=== PATIENT | male | born 1960 | race Two or more races ===

== ENCOUNTER 2019-05-08 16:25 | Emergency (ER) | payer MEDICARE, MEDICAID ==
[~2019-05-08] VITALS: Ht 170.2 cm; Wt 81.6 kg
[2019-05-08 16:30] VITALS: BP 149/80
--- NOTE | 2019-05-08 16:30 | NUR ---
ED Nurse Note: pt brought by [place] ambulance from [facility] due to abscess on upper back for 3 days. pt c/o pain when RN palpate, no redness noted. no local fever. AAO x3. respirations even and non-labored noted. will wait for the further order.
--- NOTE | 2019-05-08 16:50 | Emergency Room Report ---
History of Present Illness General Chief Complaint: Skin Rash/Abscess Source: Patient, Medical Record Present Illness HPI Patient presents with an infection in his upper back. He states it's slightly tender. He is not sure when his last tetanus vaccination was. Documentation states it is up-to-date. The patient is unable to quantify the pain or report what it feels like. Patient denies fevers or chills. He was sent to have this evaluated. Patient is status post stroke and living in a group home facility. Patient complains of polyuria states this is usually because his blood sugars high. History of type 2 diabetes. History of epilepsy. No sore throat, chest pain, palpitations, nausea, vomiting, diarrhea, abdominal pain, shortness of breath, joint pain, depression, anxiety, visual changes, headache. 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 Reviewed Nursing Documentation: PMH: Agreed; PSxH: Agreed Nursing Documentation-PMH Past Medical History: No History, Except For Hx Diabetes: Yes - Type 2 Review of Systems All Other Systems: negative except mentioned in HPI Physical Exam Vital Signs Date Time Temp Pulse Resp B/P (MAP) Pulse Ox O2 Delivery O2 Flow Rate FiO2 05/08/19 16:21 98.4 100 18 145/89 (107) 98 Room Air Sp02 EP Interpretation: reviewed, normal General Appearance: no apparent distress, Chronically Ill Head: normocephalic, atraumatic Eyes: bilateral eye abnormal EOM - Slight disconjugate gaze, bilateral eye other - Arcus ENT: moist mucus membranes Neck: full range of motion, supple Respiratory: chest non-tender, lungs clear, normal breath sounds Cardiovascular #1: regular rate, rhythm Gastrointestinal: normal inspection Genitourinary: no CVA tenderness Musculoskeletal: decreased range of mation - Contractures Neurologic: alert, oriented - X2 Psychiatric: mood/affect normal Skin: other - Abscess mid upper back with black comedone minimal surrounding erythema and fluctuance Procedures Incision and Drainage Incision and Drainage : Consent: Verbal Site: upper back Blade Size: 11 I & D Procedure: betadine prep, sterile drapes applied, sterile dressing applied, gauze wick placed Wound Location: back Wound's Depth, Shape: superficial Wound Length (cm): 1 Wound Explored: contaminated - Fell case he is material and pus expressed Irrigated w/ Saline (ccs): 30 Anesthesia: Lidocaine w/ Epi Volume Anesthetic (ccs): 1 Splint Applied?: No Patient Tolerated: Well Complications: None Medical Decision Making Diagnostic Impression: Primary Impression: Infected sebaceous cyst Additional Impression: Encounter for incision and drainage procedure ER Course Patient presents with an abscess in his upper back. This could be an infected sebaceous cyst. There is no evidence of extensive cellulitis. He does not appear toxic. This needs to be incised and drained. In addition Bactrim will be started. Accu-Chek 238. Urinalysis unremarkable. See procedure note. Patient tolerated the incision and drainages well. Patient tolerated the procedure well. As the weekend is approaching and packing will need to be replaced the patient is advised to return to the emergency department. Patient stable for outpatient observation and treatment. Laboratory Tests Test 05/08/19 17:25 Urine Color Pale yellow Urine Appearance Clear Urine pH 7 (4.5-8.0) Urine Specific [place] 1.005 (1.005-1.035) Urine Protein Negative (NEGATIVE) Urine Glucose (UA) 1+ (NEGATIVE) H Urine Ketones Negative (NEGATIVE) Urine Blood Negative (NEGATIVE) Urine Nitrite Negative (NEGATIVE) Urine Bilirubin Negative (NEGATIVE) Urine Urobilinogen Normal MG/DL (0.0-1.0) Urine Leukocyte Esterase Negative (NEGATIVE) Rhythm Strip Diag. Results EP Interpretation: yes Rhythm: NSR, no PVC's, no ectopy Last Vital Signs Date Time Temp Pulse Resp B/P (MAP) Pulse Ox O2 Delivery O2 Flow Rate FiO2 05/08/19 22:40 99.4 97 20 148/82 96 Room Air Status: improved Disposition: XFER SNF Condition: Improved Scripts Acetaminophen (Tylenol) 325 Mg Tablet 650 MG ORAL Q6H PRN for Prn Pain/Headache/Temp > 101, #20 TAB 0 Refills Prov: Yeyo Rasmussen MD 05/08/19 Trimethoprim/Sulfamethoxazole 160/800* (BACTRIM DS TABLET*) 1 Each Tablet 1 TAB ORAL Q12H, #14 TAB 0 Refills Prov: Yeyo Rasmussen MD 05/08/19 Yeyo Rasmussen MD May 08, 2019 16:50
[2019-05-08] MEDS ORDERED: Bactrim-DS 1 tab ORAL ONE (17:00)
[2019-05-08] MEDS ORDERED: Lidocaine 1% 10mg/ml/Epi 0.005mg/ml 10ml vial INJ ONE (17:00)
[2019-05-08] MEDS ORDERED: Acetaminophen 500mg (ES) tab PO ONE (17:00)
[2019-05-08 17:53] LABS: APPEARANCE,URINE CLEAR; BILIRUBIN, URINE NEGATIVE (NEGATIVE); COLOR,URINE PALE YELLOW; GLUCOSE, URINE (UA) 1+ (NEGATIVE); KETONES,URINE NEGATIVE (NEGATIVE); LEUKOCYTE ESTERASE ,URINE NEGATIVE (NEGATIVE); NITRITE,URINE NEGATIVE (NEGATIVE); PH,URINE 7 (4.5-8.0); PROTEIN,URINE NEGATIVE (NEGATIVE); UROBILINOGEN,URINE NORMAL MG/DL (0.0-1.0)
--- NOTE | 2019-05-08 19:18 | NUR ---
HAND-OFF: Report given to SACHA Forrester.
--- NOTE | 2019-05-08 19:20 | NUR ---
ED Nurse Note: received report from SACHA Vazquez and assumed care, pending I&D, consent form signed.
[2019-05-08] MEDS ORDERED: BACTRIM DS TAB1 EAC1 ORAL (21:23)
[2019-05-08] MEDS ORDERED: TYLENOL325 MG ORAL (21:23)
--- NOTE | 2019-05-08 22:34 | NUR ---
ED Nurse Note: called [facility] and spoke to Guerrero and advised that the pt is returning back to the custodial, informed the staff that pt had I&D done and sending pt with prescription.
[2019-05-08 22:40] VITALS: BP 148/82
--- NOTE | 2019-05-08 22:40 | NUR ---
ED Nurse Note: pt cleared to be d/c per eRMD, pt discharge and summary of care w/ prescription given to EMS staff, pt vss, resp even and unlabored on RA, dressing intact, care endorsed to EMS, all belongings sent w/ pt.
== END 2019-05-08 22:40 ==
LOC: EDBD 16:25 → EMR 17:00
DX: L72.3 Sebaceous cyst (principal); L08.89 Other specified local infections of the skin and subcutaneous tissue; E11.9 Type 2 diabetes mellitus without complications; Z88.8 Allergy status to other drugs, medicaments and biological substances; Z88.1 Allergy status to other antibiotic agents; G40.909 Epilepsy, unspecified, not intractable, without status epilepticus; Z86.73 Personal history of transient ischemic attack (TIA), and cerebral infarction without residual deficits
CPT/HCPCS: 81003; 82962; 99283